=== PATIENT | male | born 1965 | race Caucasian/White ===

== ENCOUNTER → 2017-10-27 | Outpatient (CLI) | payer OTHER ==
[~2017-10-27] MED LIST: ASP325TEC PO; FISH OIL; FLAXSEED; HYDR-3816 PO; NIACIN; ROSU20TA PO
== END ==
LOC: CARD 10:17
PROVIDERS: ATTEND Internal Medicine Cardiovascular Disease
DX: I42.2 Other hypertrophic cardiomyopathy (principal); I44.69 Other fascicular block; R55 Syncope and collapse; R53.83 Other fatigue
CPT/HCPCS: 93225; 93226

== ENCOUNTER → 2017-10-27 | Outpatient (CLI) | payer OTHER | LOC: CARD 10:13 | PROVIDERS: ATTEND Internal Medicine Cardiovascular Disease | DX: I42.2 Other hypertrophic cardiomyopathy (principal); I44.69 Other fascicular block; R55 Syncope and collapse; R53.83 Other fatigue | CPT/HCPCS: 93306 ==

== ENCOUNTER → 2017-10-28 | Outpatient (CLI) | payer OTHER ==
[~2017-10-28] VITALS: Ht 182.9 cm; Wt 92.5 kg
[~2017-10-28] MED LIST changes: +REGADENOSON 0.4 MG/5 ML SYR (LEXISCAN) IV ONE
[2017-10-28] MEDS: CATHETER FLUSH 10 ML SYR IV PRN ×2 (07:26→08:52)
[2017-10-28 08:49] VITALS: BP 133/94
--- NOTE | 2017-10-29 12:21 | STRESS TEST ---
DATE OF SERVICE: 10/28/2017 PROCEDURE: Resting and post regadenoson technetium-99m Tetrofosmin SPECT CT imaging. ORDERING PHYSICIAN: Dr. Krueger. PRIMARY PHYSICIAN: Dr. Carmona. CLINICAL DIAGNOSIS: Near syncope, left bundle branch block, fatigue, hypertrophic cardiomyopathy. DESCRIPTION: Baseline images were carried out after injection of 10.39 mCi technetium-99m Tetrofosmin. This was followed by 0.4 mg regadenoson and 29.7 mCi of technetium-99m Tetrofosmin for stress imaging. The electrocardiogram showed sinus rhythm with left bundle branch block at baseline. The electrocardiogram did not change significantly with the regadenoson infusion. He had a feeling of flushing following regadenoson infusion, which resolved in a few minutes. Overall, he tolerated the procedure well. Review of images at rest and following stress does not indicate any significant perfusion defects consistent with significant myocardial ischemia or infarction. Gated images show normal global left ventricular systolic function systolic function with normal regional wall motion. Left ventricular ejection fraction is calculated to be 62%. Left ventricular end diastolic volume is 64 mL. TID is absent (1.1). CONCLUSIONS: 1. No evidence of any significant myocardial ischemia or infarction on this study. 2. Normal regional wall motion. 3. Normal global left ventricular systolic function with a calculated ejection fraction of 62%. Job ID: [id number] DocumentID: [id number] Dictated Date: 10/29/2017 08:44:02 Validation Intern Date: 10/29/2017 12:17:00 Dictated By: EDGAR KRUEGER MD, MA, FACP, FACC,
== END ==
LOC: CARD 07:14
PROVIDERS: ATTEND Internal Medicine Cardiovascular Disease
DX: I42.2 Other hypertrophic cardiomyopathy (principal); I44.69 Other fascicular block; R55 Syncope and collapse; R53.83 Other fatigue
CPT/HCPCS: 78452; 93017

== ENCOUNTER 2018-02-22 09:55 | Day surgery (SDC) | payer OTHER ==
[~2018-02-22] VITALS: Ht 185.4 cm; Wt 92.5 kg
[2018-02-22] VITALS (8 sets, daily range): BP systolic 119–130; BP diastolic 74–86
[~2018-02-22 09:55] MED LIST changes: +HYDR-34 PO; -HYDR-3816 PO; -REGADENOSON 0.4 MG/5 ML SYR (LEXISCAN) IV ONE
--- OUTSIDE RECORDS SUMMARY | 2018-02-22 09:59 | XMS REPORT | Continuity of Care Document ---
Author Author [facility] Organization [facility] Address Unknown Phone Unavailable Allergies Active Description Code Type Severity Reaction Onset Reported/Identified Relationship to Patient Clinical Status Yes OXYCODONE MODERATE OTHER Yes ZINC MODERATE DERMATOLOGICAL - HIV Yes NKANo Known Allergies NKA Miscellaneous Allergy Unknown N/A 04/15/2006 Yes oxycodone [id number] Drug Allergy Severe N/A 08/03/2016 Yes No Known Drug Allergies [id number] Drug Allergy Unknown N/A 08/03/2016 Yes zinc [id number] Drug Allergy Unknown N/A 08/03/2016 Medications There is no data. Problems Date Dx Coded Attending Type Code Diagnosis Diagnosed By 08/03/2016 REZA HARRISON MD, Ot M77.12 LATERAL EPICONDYLITIS, LEFT ELBOW 08/03/2016 REZA HARRISON MD Ot Z01.818 ENCOUNTER FOR OTHER PREPROCEDURAL EXAMIN 08/03/2016 REZA HARRISON MD Ot Z11.2 ENCOUNTER FOR SCREENING FOR OTHER BACTER 08/04/2016 REZA HARRISON MD, Ot M77.12 LATERAL EPICONDYLITIS, LEFT ELBOW 08/04/2016 REZA HARRISON MD Ot Z01.818 ENCOUNTER FOR OTHER PREPROCEDURAL EXAMIN 08/04/2016 REZA HARRISON MD Ot Z11.2 ENCOUNTER FOR SCREENING FOR OTHER BACTER 08/05/2016 EDGAR WOODSON MD, FACC, FACP CCDS Ot 397.0 TRICUSPID VALVE DISEASE 08/05/2016 EDGAR WOODSON MD, FACC, FACP CCDS Ot 424.0 MITRAL VALVE DISORDER 08/05/2016 EDGAR WOODSON MD, FACC, FACP CCDS Ot 786.50 CHEST PAIN NOS 08/05/2016 LUIS FERNANDO LAM, NGHIA Arias Ot 784.0 HEADACHE 08/05/2016 REZA HARRISON MD Ot M77.12 LATERAL EPICONDYLITIS, LEFT ELBOW 08/06/2016 REZA HARRISON MD, Ot M77.12 LATERAL EPICONDYLITIS, LEFT ELBOW 08/09/2017 Mathew, Petra W 724.2 LUMBAGO 08/09/2017 Mathew, Petra W M54.5 LOW BACK PAIN 08/09/2017 Mathew, Petra W 724.2 LUMBAGO 08/09/2017 Mathew, Petra W M54.5 LOW BACK PAIN 10/20/2017 CHINTAN GAMBOAC, ALI FACP CCDS Ot 397.0 TRICUSPID VALVE DISEASE 10/20/2017 CHINTAN GAMBOAC, ALI FACP CCDS Ot 424.0 MITRAL VALVE DISORDER 10/20/2017 CHINTAN GAMBOAC, ALI FACP CCDS Ot 786.50 CHEST PAIN NOS 10/20/2017 LUIS FERNANDO LAM, NGHIA Arias Ot 784.0 HEADACHE 10/28/2017 CHINTAN GAMBOAC, ALI FACP CCDS Ot I42.2 OTHER HYPERTROPHIC CARDIOMYOPATHY 10/28/2017 CHINTAN GAMBOAC, ALI FACP CCDS Ot I44.69 OTHER FASCICULAR BLOCK 10/28/2017 CHINTAN LAM FACC, ALI FACP CCDS Ot R53.83 OTHER FATIGUE 10/28/2017 CHINTNA LAM FACC, ALI FACP CCDS Ot R55 SYNCOPE AND COLLAPSE 11/02/2017 CHINTAN LAM FACC, ALI FACP CCDS Ot I42.2 OTHER HYPERTROPHIC CARDIOMYOPATHY 11/02/2017 CHINTAN LAM FACC, ALI FACP CCDS Ot I44.69 OTHER FASCICULAR BLOCK 11/02/2017 CHINTAN GAMBOAC, ALI FACP CCDS Ot R53.83 OTHER FATIGUE 11/02/2017 CHINTAN GAMBOAC, ALI FACP CCDS Ot R55 SYNCOPE AND COLLAPSE 11/03/2017 CHINTAN LAM FACC, ALI FACP CCDS Ot I42.2 OTHER HYPERTROPHIC CARDIOMYOPATHY 11/03/2017 CHINTAN GAMBOAC, ALI FACP CCDS Ot I44.69 OTHER FASCICULAR BLOCK 11/03/2017 CHINTAN LAM FACC, ALI FACP CCDS Ot R53.83 OTHER FATIGUE 11/03/2017 CHINTAN GAMBOAC, ALI FACP CCDS Ot R55 SYNCOPE AND COLLAPSE 11/18/2017 CHINTAN GAMBOAC, ALI FACP CCDS Ot I42.2 OTHER HYPERTROPHIC CARDIOMYOPATHY 11/18/2017 CHINTAN LAM FACC, ALI FACP CCDS Ot I44.69 OTHER FASCICULAR BLOCK 11/18/2017 CHINTAN LAM FACC, ALI FACP CCDS Ot R53.83 OTHER FATIGUE 11/18/2017 CHINTAN LAM FACC, ALI FACP CCDS Ot R55 SYNCOPE AND COLLAPSE 11/18/2017 CHINTAN LAM FACC, ALI FACP CCDS Ot I42.2 OTHER HYPERTROPHIC CARDIOMYOPATHY 11/18/2017 CHINTAN LAM FACC, ALI FACP CCDS Ot I44.69 OTHER FASCICULAR BLOCK 11/18/2017 CHINTAN MD FACC, ALI FACP CCDS Ot R53.83 OTHER FATIGUE 11/18/2017 CHINTAN LAM FACC, ALI FACP CCDS Ot R55 SYNCOPE AND COLLAPSE 11/18/2017 CHINTAN LAM FACC, ALI FACP CCDS Ot I42.2 OTHER HYPERTROPHIC CARDIOMYOPATHY 11/18/2017 CHINTAN LAM FACC, ALI FACP CCDS Ot I44.69 OTHER FASCICULAR BLOCK 11/18/2017 CHINTAN LAM FACC, ALI FACP CCDS Ot R53.83 OTHER FATIGUE 11/18/2017 CHINTAN GAMBOAC, ALI FACP CCDS Ot R55 SYNCOPE AND COLLAPSE 12/29/2017 Petra Carmona W 297.9 UNSPECIFIED [place] STATE 12/29/2017 Mathew, Petra W F04 AMNESTIC DISORDER DUE TO KNOWN PHYSIOLOGICAL CONDITION 12/29/2017 Mathew Petra W 297.9 UNSPECIFIED [place] STATE 12/29/2017 Mathew, Petra W F04 AMNESTIC DISORDER DUE TO KNOWN PHYSIOLOGICAL CONDITION 12/31/2017 Mathew Petra W 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 Results Test Result Range Methicillin resistant Staphylococcus aureus (MRSA) screening culture - 12:50 Methicillin resistant Staphylococcus aureus (MRSA) screening culture NEG NRG Thyroid Stimulating Hormone - 08/12/17 07:16 TSH 1.42 mIU/mL 0.32-5.00 PSA Yearly Screen - 08/12/17 07:16 PSA TOTAL 0.9 ng/mL 0.0-4.0 VIT B-12 - 12/29/17 10:47 Vitamin B12 407.00 pg/mL 213.00-816.00 Folate - 12/29/17 10:47 Folate 19.70 ng/mL 7.00-31.40 Encounters ACCT No. Visit Date/Time Discharge Status Pt. Type Provider Facility Loc./Unit Complaint [id number] 10/28/2017 07:14:00 10/28/2017 23:59:59 CLS Outpatient CHINTAN LAM FACC, EDGAR FACP CCDS [facility] CARD NEAR SYNCOPE [id number] 10/27/2017 10:17:00 10/27/2017 23:59:59 CLS Outpatient EDGAR WOODSON MD, FACC FACP CCDS [facility] CARD NEAR SYNCOPE [id number] 10/27/2017 10:13:00 10/27/2017 23:59:59 CLS Outpatient CHINTAN LAM FACC, ALI FACP CCDS [facility] CARD NEAR SYNCOPE [id number] 08/05/2016 06:00:00 08/05/2016 10:25:00 DIS Outpatient REZA HARRISON MD [facility] SDC LEFT LATERAL EPICONDYLITIS [id number] 08/03/2016 12:24:00 08/03/2016 14:17:00 DIS Outpatient REZA HARRISON MD [facility] PREOP LEFT LATERAL EPICONDYLITIS [id number] 08/30/2014 15:28:00 08/30/2014 23:59:59 CLS Outpatient NGHIA GOULD MD [facility] RAD SEVERE RIGHT SIDED HEADACHE [id number] 01/29/2014 09:34:00 01/29/2014 23:59:59 CLS Outpatient EDGAR WOODSON MD, FACC FACYessenia CCDS [facility] CARD CAD [id number] 03/24/2013 06:55:00 03/24/2013 10:30:00 DIS Outpatient [id number] 03/23/2013 07:16:00 03/23/2013 23:59:59 CLS Outpatient [id number] 12/31/2017 15:41:00 12/31/2017 23:59:00 DIS Outpatient Petra Carmona [id number] 12/29/2017 09:57:00 12/29/2017 23:59:00 DIS Outpatient Petra Carmona [id number] 08/12/2017 07:14:00 08/12/2017 23:59:00 DIS Outpatient Petra Carmona [id number] 08/09/2017 19:08:00 08/09/2017 23:59:00 DIS Outpatient Petra Carmona [id number] 08/06/2017 14:23:00 08/06/2017 23:59:00 DIS Outpatient Petra Carmona
[2018-02-22] MEDS ORDERED: HEParin (CATH LAB) 2,000 ML IV ONE (10:00)
[2018-02-22] MEDS ORDERED: NS IV 1000 ML 1,000 ML ONE (10:00)
[2018-02-22] MEDS ORDERED: RECEIVED CONTRAST (Hold Metformin) IV SCH (10:15)
[2018-02-22] MEDS ORDERED: REGADENOSON 0.4 MG/5 ML SYR (LEXISCAN) IV ONE (10:15)
[2018-02-22] MEDS ORDERED: NS IV 1000 ML 1,000 ML IV SCH ×3 (10:15→15:08)
[2018-02-22] MEDS ORDERED: ROSU5TAB11 PO (10:31)
[2018-02-22 10:33] LABS: HEMOGLOBIN 17.1 G/DL (13.3-17.7); MEAN PLATELET VOLUME 8.4 FL (7.4-10.4); RED BLOOD COUNT 5.33 10^6/uL (4.35-5.85); RED CELL DISTRIBUTION WIDTH 12.5 % (10.0-14.5); WHITE BLOOD COUNT 5.5 10^3/uL (4.3-11.0)
[2018-02-22 10:48] LABS: INR 0.9 (0.8-1.4); PROTHROMBIN TIME PATIENT 12.5 SEC (12.2-14.7)
[2018-02-22 10:59] LABS: ALANINE AMINOTRANSFERASE 26 U/L (0-55); ALBUMIN 4.5 GM/DL (3.2-4.5); ALKALINE PHOSPHATASE 80 U/L (40-136); BILIRUBIN,TOTAL 0.9 MG/DL (0.1-1.0); BUN/CREATININE RATIO 19; CALCIUM 9.5 MG/DL (8.5-10.1); CARBON DIOXIDE 23 MMOL/L (21-32); CHLORIDE 104 MMOL/L (98-107); CREATININE SERUM 1.17 MG/DL (0.60-1.30); GFR ESTIMATED > 60; GLUCOSE 99 MG/DL (70-105); POTASSIUM 4.2 MMOL/L (3.6-5.0); SODIUM 139 MMOL/L (135-145); TOTAL PROTEIN 7.1 GM/DL (6.4-8.2); TRIGLYCERIDES 213 MG/DL (<150)
[2018-02-22 11:00] LABS: CHOLESTEROL 267 MG/DL (< 200); HDL CHOLESTEROL 49 MG/DL (40-60); VLDL CHOLESTEROL 43 MG/DL (5-40)
[2018-02-22] MEDS ORDERED: MIDAZOLAM 5 MG/5 ML (VERSED) VIAL ONE (13:25)
[2018-02-22] MEDS ORDERED: diphenhydrAMINE 50 MG/ML INJ (BENADRYL) ONE (13:25)
[2018-02-22] MEDS ORDERED: fentaNYL INJECTION 100 MCG/2 ML AMP ONE (13:25)
[2018-02-22] MEDS ORDERED: LIDOCAINE 1% INJ 50 ML (XYLOCAINE) VIAL ONE (13:47)
--- NOTE | 2018-02-22 13:51 | Cardiac Procedure Note-CS/ASA ---
Pre-Procedure Note Pre-Op Procedure Note H&P Reviewed The H&P was reviewed, patient examined and no changes noted. Date H&P Reviewed: Feb 22, 2018 Time H&P Reviewed: 13:51 Conscious Sedation Pre-Proced Time Reviewed: 13:51 ASA Class: 3 Airway Mallampati Classification: ([place] appropriate class) I. II. III, IV Lungs Heart ASA score ASA 1: a normal healthy patient ASA 2: a patient with a mild systemic disease (mid diabetes, controlled hypertension, obesity ASA 3: a patient with a severe systemic disease that limits activity (angina , COPD, prior Myocardial infarction) ASA 4: a patient with an incapacitating disease that is a constant threat to life (CHF, renal failure) ASA 5: a moribund patient not expected to survive 24 hrs. (ruptured aneurysm) ASA 6: a declared brain patient whose organs are being harvested. For emergent operations, add the letter E after the classification Grade 2 Sedation Plan: Analgesia, Amnesia, Plan communicated to team members, Discussed options with patient/fam, Discussed risks with patient/fam Note The patient is an appropriate candidate to undergo the planned procedure, sedation, and anesthesia. The patient immediately re-assessed prior to indication. EDGAR WOODSON MD FACP FAC CCDS Feb 22, 2018 13:51
--- NOTE | 2018-02-22 15:11 | Discharge Inst-Cardiology ---
Discharge Inst-Cardiac Discharge Medications Continued Medications: Aspirin (Aspirin Ec 325 Mg) 325 Mg Tabec 325 MG PO DAILY Rosuvastatin Calcium (Rosuvastatin Calcium) 5 Mg Tablet 5 MG PO DAILY, TAB Orders-Post D/C & Referrals Pneu Vac Indicated: Yes EDGAR WOODSON MD FACP FACC CCDS Feb 22, 2018 15:11
--- NOTE | 2018-02-22 15:11 | Discharge Inst-Post CATH ---
Discharge Inst-CATH Post Cardiac Cath D/C Inst Follow Up/Plan F/u with Dr Krueger in 2 weeks CARDIAC CATH DISCHARGE INSTRUCTIONS *Hold Metformin for 48 hours post heart cath. ACTIVITY * Go Home directly and rest. * Limit activity of the leg (or wrist if it was used) for 7 days including aerobics, swimming, jogging, bicycling, etc. * Restrict stair-climbing for 7 days if possible, if not, climb up with your non -cath leg, then bring together on the same step. * Avoid lifting, pushing, pulling or excessive movement of the affected extremity for 7 days. * Customary sexual activity may be resumed after 2 days-use caution not to use a position that strains or causes pain to the affected extremity. * No driving for 24 hours. * NO SMOKING. * Avoid straining for bowel movements for 7 days. * Gentle walking on level ground is allowed. * Returning to work will depend on the type of procedure and the results. Your doctor will discuss this with you. CALL YOUR DOCTOR FOR ANY OF THE FOLLOWING: *If bleeding from the puncture site occurs- Apply gentle pressure to site with clean cloth and call your doctor or EMS. * If a knot or lump forms under the skin, increases in size, or causes pain. * If bruising appears to be worsening or moving further down your leg instead of disappearing. * Temperature above 101 F. CARE OF YOUR GROIN INCISION; * Bruising or purple discoloration of the skin near the puncture site is common. * You may shower only, no bathtub bathing for 5 days. Be careful to avoid slipping as your leg may feel stiff. * If a closure device was used on your femoral artery, please see the attached guide regarding care of the device and your leg. * REMOVE the dressing from your groin the next day after your procedure in the shower. CARE OF YOUR WRIST INCISION; * Bruising or purple discoloration of the skin near the puncture site is common. * You may shower. * DO NOT submerge wrist. * Remove dressing in 24 hours. EDGAR KRUEGER MD [facility] CCDS Feb 22, 2018 15:11
[2018-02-22] MEDS ORDERED: PATIENT MAY USE OWN MEDS, ALL PO SCH (15:15)
--- NOTE | 2018-02-22 15:46 | CARDIAC CATHETERIZATION ---
DATE OF SERVICE: 02/22/2018 CARDIAC CATHETERIZATION REPORT The patient is a 52-year-old man with known history of hypertrophic cardiomyopathy for which he has had septal myectomy several years ago. Lately, he has had recurrent symptoms, similar to what he was experiencing prior to septal myectomy. He reports tiredness, generalized weakness and loss of stamina. Symptoms have been progressive. Cardiac catheterization was carried out today after having obtained an informed consent. PROCEDURE: He was brought to the cardiac catheterization laboratory in a fasting state. The right groin was prepped and draped in the usual sterile fashion. Lidocaine 1% with local anesthesia. Modified Seldinger technique was then used to advance a 7-[place] sheath into the right femoral vein. We carried out right heart catheterization using a 7-[place] catheter. We measured oxygen saturation in various chambers of the heart, as well. Subsequently, the [place] catheter was removed. We then carried out left heart catheterization. We used a dual-lumen pigtail catheter. The pigtail was advanced across the aortic valve into the left ventricle. We measured simultaneous left ventricular and ascending aortic pressures. We induced premature ventricular contraction to look for Brockenbrough sign. We carried out left ventricular angiography with the pigtail catheter. The pigtail catheter was then pulled back and removed. We used a 6-[place] JL4 catheter for left coronary angiography and 6-[place] JR4 catheter for right coronary angiography. We then used pigtail catheter to carry out aortic arch angiography. Following removal of the diagnostic catheters, angiography of the right femoral artery was carried out through the sheath. Mynx was used to achieve hemostasis. He tolerated the procedure well. HEMODYNAMICS: Pulmonary artery pressure is 34/20 with a mean of 24 mmHg. Mean pulmonary wedge pressure was 14 mmHg. Right ventricular systolic pressure was 42 mmHg. Right ventricular end-diastolic pressure was 13 mmHg. Right atrial mean pressure was 10 mmHg. Left ventricular end diastolic pressure was 11 mmHg. There did not appear to be significant pressure gradient across the aortic valve and the left ventricular outflow tract. Brockenbrough sign was negative. Ascending aortic pressure was 125/73 with a mean of 91 mmHg. CORONARY ANGIOGRAPHY: Left main coronary artery is free of significant disease. Left anterior descending artery is free of obstructive disease. In the mid portion of the left anterior descending artery, myocardial bridging is seen. Left circumflex artery does not exhibit significant disease. The right coronary artery is dominant and does not exhibit significant obstructive disease. LEFT VENTRICULAR ANGIOGRAPHY: Global left ventricular systolic function is normal. No regional wall motion abnormality is seen. There does not appear to be any significant mitral regurgitation. AORTIC ARCH ANGIOGRAPHY: Aortic arch angiography did not indicate any significant thoracic aortic aneurysm or dissection. The neck arteries, to the extent seen, do not exhibit significant obstructive disease. CONCLUSIONS: 1. No angiographically significant coronary artery disease. 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 2. Normal global left ventricular systolic function with ejection fraction of approximately 65%. 3. No significant mitral regurgitation. No evidence of any significant dynamic obstruction of the left ventricle. DISCUSSION AND RECOMMENDATIONS: Based on the results of the study, it appears appropriate to continue a conservative approach. Risk factor modification has been reviewed. Outpatient followup is advised. Job ID: [id number] DocumentID: [id number] Dictated Date: 02/22/2018 15:03:41 Hardware Developer Date: 02/22/2018 15:45:53 Dictated By: EDGAR WOODSON MD, MA, FACP, FACC,
== END 2018-02-22 17:43 | disposition home or self-care (01) ==
LOC: CATH 09:55 → ICU 15:22 → CATH 17:43
PROVIDERS: ATTEND Internal Medicine Cardiovascular Disease
DX: R53.83 Other fatigue (principal); I44.7 Left bundle-branch block, unspecified; E78.1 Pure hyperglyceridemia; R07.9 Chest pain, unspecified; Z79.82 Long term (current) use of aspirin; Z79.899 Other long term (current) drug therapy
CPT/HCPCS: 36415; 80053; 80061; 85027; 85610; 85730; 87081; 93005

== ENCOUNTER 2019-01-09 13:32 | Emergency (ER) | payer OTHER ==
[~2019-01-09] VITALS: Ht 185.4 cm; Wt 93.0 kg
[2019-01-09] MEDS ORDERED: LIDOCAINE PF 1% 5 ML (XYLOCAINE) AMP ONE (13:42)
[2019-01-09] MEDS ORDERED: LIDOCAINE 1% INJ 20 ML 20 ML VIAL ONE (13:43)
--- NOTE | 2019-01-09 13:53 | ED Upper Extremity ---
General Stated Complaint: LT THUMB INJ Source: patient Exam Limitations: no limitations History of Present Illness Date Seen by Provider: Jan 09, 2019 Time Seen by Provider: 13:51 Initial Comments To ER with reports of left thumb injury. He works at [employer], they've had trouble with some sort of roller heating up, he was working near this roller when his thumb got sucked into the roller. There is no crush injury with laceration to the left thumb. Tetanus was updated 3 years ago. Onset: just prior to arrival Severity: moderate Pain/Injury Location: left thumb Method of Injury: other (crush injury) Modifying Factors: Worse With Movement Allergies and Home Medications Allergies Coded Allergies: oxycodone (Verified Allergy, Severe, 08/03/16) iron (Verified Allergy, Unknown, 02/22/18) niacin (Verified Allergy, Unknown, 02/22/18) zinc (Verified Allergy, Unknown, 08/03/16) Home Medications Aspirin 325 Mg Tabec, 325 MG PO DAILY, (Reported) Rosuvastatin Calcium 5 Mg Tablet, 5 MG PO DAILY, (Reported) Patient Home Medication List Home Medication List Reviewed: Yes Review of Systems Constitutional: see HPI EENTM: see HPI Respiratory: no symptoms reported Cardiovascular: no symptoms reported Genitourinary: no symptoms reported Musculoskeletal: see HPI Skin: no symptoms reported Past Weyoioo-Uxsbew-Ljwihe Hx Patient Social History Recent Foreign Travel: No Contact w/Someone Who Travel: No Past Medical History Reproductive Disorders: No Sexually Transmitted Disease: No HIV/AIDS: Yes Kidney Stones Polyps Loss of Vision: Bilateral Hearing Impairment: Denies Adverse Reaction/Blood Tranf: No (N/A) Physical Exam Vital Signs Vital Signs - First Documented 01/09/19 13:45 Temp 95.7 Pulse 78 Resp 18 B/P (MAP) 154/89 (110) Pulse Ox 96 O2 Delivery Room Air Capillary Refill : Height, Weight, BMI Height: 6'1.00" Weight: 204lbs. 0.0oz. 92.952438bz; 26.9 BMI Method: General Appearance: WD/WN, no apparent distress HEENT: PERRL/EOMI Respiratory: no respiratory distress, no accessory muscle use Shoulder: normal inspection, non-tender Elbow/Forearm: normal inspection, non-tender Hand: Left (flap to the pad of the left thumb. He is able to flex the thumb at the interphalangeal joint. The flap does have capillary refill.), laceration Neurologic/Psychiatric: alert, normal mood/affect, oriented x 3 Skin: normal color, warm/dry Procedures/Interventions Wound Location: Upper Extremities Wound Length (cm): 4 Wound's Depth, Shape: irregular Wound Explored: clean Irrigated w/ Saline (ccs): 350 Anesthesia: 1% Lidocaine Volume Anesthetic (ccs): 5 Suture: Prolene Suture Size: 5-0 Number of Sutures: 12 Layer Closure?: 1 Number Deep Layer Sutures: 0 Progress Digital block was done using 5 mL of 1% lidocaine without epinephrine. Wound was then scrubbed with chlorhexidine/saline solution then irrigated with 350 mL of the same. The flap to the pad of the thumb does have capillary refill. Edges were reapproximated with 9 simple interrupted sutures size 5-0 Prolene. There was an additional laceration to the middle of the pad of the thumb closed with 3 simple a ruptured sutures size 5-0 Prolene. There is a subungual hematoma. Nail trephination was done using a cautery pen. Finger was then dressed with oral emulsion dressing, gauze roll and then tube gauze. Progress/Results/Core Measures Results/Orders My Orders Orders - BRAXTON GONZALEZ APRN Lidocaine Pf 1% 5 Ml Injection (Xylocain (01/09/19 13:42) Lidocaine 1% Inj 20 Ml (Xylocaine 1% Inj (01/09/19 13:43) Hand, Left, 3 Views (01/09/19 13:50) Lidocaine 1% Inj 20 Ml (Xylocaine 1% Inj (01/09/19 14:00) Hydrocodone/Apap 5/325 Tablet (Lortab 5 (01/09/19 14:00) Medications Given in ED Current Medications Medications Dose Ordered Sig/Tracy Route Start Time Stop Time Status Last Admin Dose Admin Acetaminophen/ Hydrocodone Bitart 1 tab ONCE ONCE PO 01/09/19 14:00 01/09/19 14:01 DC 01/09/19 14:25 1 TAB Lidocaine HCl 1 ml ONCE ONCE INJ 01/09/19 14:00 01/09/19 14:01 DC 01/09/19 14:15 1 ML Vital Signs/I&O 01/09/19 13:45 Temp 95.7 Pulse 78 Resp 18 B/P (MAP) 154/89 (110) Pulse Ox 96 O2 Delivery Room Air Departure Impression Primary Impression: Crush injury to thumb Qualified Codes: S67.02XA - Crushing injury of left thumb, initial encounter Disposition: HOME, SELF-CARE Condition: Stable Departure-Patient Inst. Decision time for Depature: 14:44 Referrals: YOON SHIN MD (PCP/Family) Primary Care Physician Patient Instructions: Laceration Repair With Stitches (DC) Add. Discharge Instructions: 1. Leave this dressing in place until Wednesday evening. Then you may remove it by simply pulling on it. If you wish, you can simply wash this gently with soap and water pat it dry gently then reapply an oil emulsion dressing and tube gauze. Try to keep this covered for about 2 weeks. You not soak this in water such as a hot tub or bathtub or dish sink, but letting water gently run over it beneath the sink once a day is okay to start in 2 days. Stitches should be removed in about 10-12 days. Return to the emergency room at that time at your convenience within that timeframe. Take the antibiotics and the pain medication as directed. It is fine to add 3 regular strength ibuprofen tablets every 8 hours to the pain medication prescribed if you need additional pain control. Elevate the hand, that will help with throbbing as well. Scripts Cephalexin (Keflex) 500 Mg Capsule 500 MG PO TID, #21 CAP Prov: BRAXTON GONZALEZ APRN 01/09/19 Hydrocodone/Acetaminophen (Hydrocodone-Acetamin 5-325 mg) 1 Each Tablet 1 TAB PO Q4-6HR for PAIN-MODERATE MDD 10, #20 TAB Prov: BRAXTON GONZALEZ SCHOOL COUNSELOR 01/09/19 BRAXTON GONZALEZ APRN Jan 09, 2019 13:53
[2019-01-09] MEDS ORDERED: LIDOCAINE 1% INJ 20 ML 20 ML VIAL INJ ONE (14:00)
[2019-01-09] MEDS ORDERED: HYDROcodone/APAP 5 MG/325 MG (LORTAB) TAB PO ONE (14:00)
--- NOTE | 2019-01-09 14:26 | Diagnostic Imaging Report ---
Indication: Crush injury with lacerations and bleeding. There is some soft tissue gas and soft tissue irregularity about the thumb. There was however no retained opaque foreign body and no fracture can be identified. Impression: Soft tissue injury and soft tissue gas at the level of the distal phalanx of the thumb but no acute bony abnormality or retained foreign body. Dictated by: Dictated on workstation # [id number]
[2019-01-09 14:54] VITALS: BP 145/89
== END 2019-01-09 14:54 | disposition home or self-care (01) ==
LOC: EDUNIT# 13:32 → ER 13:34
DX: S67.02XA Crushing injury of left thumb, initial encounter (principal); Z88.5 Allergy status to narcotic agent; Z88.8 Allergy status to other drugs, medicaments and biological substances; Z79.82 Long term (current) use of aspirin; Z87.442 Personal history of urinary calculi; Z86.010 Personal history of colon polyps; W23.1XXA Caught, crushed, jammed, or pinched between stationary objects, initial encounter; Y92.59 Other trade areas as the place of occurrence of the external cause; Y99.0 Civilian activity done for income or pay
CPT/HCPCS: 12002; 73130

== ENCOUNTER 2019-01-20 12:36 | Emergency (ER) | payer OTHER ==
[~2019-01-20] VITALS: Ht 185.4 cm; Wt 93.0 kg
[~2019-01-20 12:36] MED LIST changes: +CEPH-507 PO; +HYDR-3812 PO; +ROSU5TAB12 PO
[2019-01-20 13:19] VITALS: BP 112/65
--- OUTSIDE RECORDS SUMMARY | 2019-01-22 09:25 | XMS REPORT | Continuity of Care Document ---
Author Author [facility] Organization [facility] Address Unknown Phone Unavailable Allergies Active Description Code Type Severity Reaction Onset Reported/Identified Relationship to Patient Clinical Status Yes OXYCODONE MODERATE OTHER Yes ZINC MODERATE DERMATOLOGICAL - HIV Yes NKANo Known Allergies NKA Miscellaneous Allergy Unknown N/A 04/15/2006 Yes oxycodone [id number] Drug Allergy Severe N/A 08/03/2016 Yes No Known Drug Allergies [id number] Drug Allergy Unknown N/A 08/03/2016 Yes zinc [id number] Drug Allergy Unknown N/A 08/03/2016 Yes iron [id number] Drug Allergy Unknown N/A 02/22/2018 Yes niacin [id number] Drug Allergy Unknown N/A 02/22/2018 Medications There is no data. Problems Date Dx Coded Attending Type Code Diagnosis Diagnosed By 08/03/2016 REZA HARRISON MD, Ot M77.12 LATERAL EPICONDYLITIS, LEFT ELBOW 08/03/2016 REZA HARRISON MD Ot Z01.818 ENCOUNTER FOR OTHER PREPROCEDURAL EXAMIN 08/03/2016 REZA HARRISON MD Ot Z11.2 ENCOUNTER FOR SCREENING FOR OTHER BACTER 08/04/2016 REZA HARRISON MD Ot M77.12 LATERAL EPICONDYLITIS, LEFT ELBOW 08/04/2016 [...] CCDS Ot 786.50 CHEST PAIN NOS 08/05/2016 NGHIA GOULD MD Ot 784.0 HEADACHE 08/05/2016 CHRISTY LAM, REZA Casas Ot M77.12 LATERAL EPICONDYLITIS, LEFT ELBOW 08/06/2016 CHRISTY LAM, REZA Casas Ot M77.12 LATERAL EPICONDYLITIS, LEFT ELBOW 08/09/2017 Mathew, Petra W 724.2 LUMBAGO 08/09/2017 Mathew, Petra W M54.5 LOW BACK PAIN 08/09/2017 Pretty Carmonaa W 724.2 LUMBAGO 08/09/2017 Mathew, Petra W M54.5 LOW BACK PAIN 10/20/2017 CHINTAN GAMBOAC, ALI FACP CCDS Ot 397.0 TRICUSPID VALVE DISEASE 10/20/2017 CHINTAN LAM FACC, ALI FACP CCDS Ot 424.0 MITRAL VALVE DISORDER 10/20/2017 CHINTAN LAM FACC, ALI FACP CCDS Ot 786.50 CHEST PAIN NOS 10/20/2017 LUIS FERNANDO LAM, NGHIA Arias Ot 784.0 HEADACHE 10/28/2017 CHINTAN LAM FACC, ALI FACP CCDS Ot I42.2 OTHER HYPERTROPHIC CARDIOMYOPATHY 10/28/2017 CHINTAN LAM FACC, ALI FACP CCDS Ot I44.69 OTHER FASCICULAR BLOCK 10/28/2017 CHINTAN LAM FACC, ALI FACP CCDS Ot R53.83 OTHER FATIGUE 10/28/2017 CHINTAN LAM FACC, ALI FACP CCDS Ot R55 SYNCOPE AND COLLAPSE 11/02/2017 CHINTAN LAM FACC, ALI FACP CCDS Ot I42.2 OTHER HYPERTROPHIC CARDIOMYOPATHY 11/02/2017 CHINTAN LAM FACC, ALI FACP CCDS Ot I44.69 OTHER FASCICULAR BLOCK 11/02/2017 CHINTAN LAM FACC, ALI FACP CCDS Ot R53.83 OTHER FATIGUE 11/02/2017 CHINTAN LAM FACC, ALI FACP CCDS Ot R55 SYNCOPE AND COLLAPSE 11/03/2017 CHINTAN LAM FACC, ALI FACP CCDS Ot I42.2 OTHER HYPERTROPHIC CARDIOMYOPATHY 11/03/2017 CHINTAN LAM FACC, ALI FACP CCDS Ot I44.69 OTHER FASCICULAR BLOCK 11/03/2017 CHINTAN LAM FACC, ALI FACP CCDS Ot R53.83 OTHER FATIGUE 11/03/2017 CHINTAN LAM FACC, ALI FACP CCDS [...] FACP CCDS Ot R53.83 OTHER FATIGUE 11/18/2017 CHINTNA LAM FACC, ALI FACP CCDS Ot [...] Carmona W 297.9 UNSPECIFIED PARANOID STATE 12/29/2017 Petra Carmona W F04 AMNESTIC DISORDER DUE TO KNOWN PHYSIOLOGICAL CONDITION 12/29/2017 Petra Carmona W 297.9 UNSPECIFIED PARANOID STATE 12/29/2017 Pretty Carmonaa W F04 AMNESTIC DISORDER DUE TO KNOWN PHYSIOLOGICAL CONDITION 12/31/2017 Petra Carmona W 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 12/31/2017 Petra Carmona W E04.1 NONTOXIC SINGLE THYROID NODULE 12/31/2017 Petra Carmona W 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 12/31/2017 Petra Carmona W E04.1 NONTOXIC SINGLE THYROID NODULE 02/21/2018 CHINTAN LAM FACC, ALI FACP CCDS Ot 397.0 TRICUSPID VALVE DISEASE 02/21/2018 CHINTAN LAM FACC, ALI FACP CCDS Ot 424.0 MITRAL VALVE DISORDER 02/21/2018 CHINTAN MD FACC, ALI FACP CCDS Ot 786.50 CHEST PAIN NOS 02/21/2018 LUIS FERNANDO LAM, NGHIA Arias Ot 784.0 HEADACHE 02/21/2018 CHINTAN LAM FACC, ALI FACP CCDS Ot I42.2 OTHER HYPERTROPHIC CARDIOMYOPATHY 02/21/2018 CHINTAN LAM FACC, ALI FACP CCDS Ot I44.69 OTHER FASCICULAR BLOCK 02/21/2018 CHINTAN LAM FACC, ALI FACP CCDS Ot R53.83 OTHER FATIGUE 02/21/2018 CHINTAN LAM FACC, ALI FACP CCDS Ot R55 SYNCOPE AND COLLAPSE 02/21/2018 CHINTAN LAM FACC, ALI FACP CCDS Ot I42.2 OTHER HYPERTROPHIC CARDIOMYOPATHY 02/21/2018 CHINTAN LAM FACC, ALI FACP CCDS Ot I44.69 OTHER FASCICULAR BLOCK 02/21/2018 CHINTAN GAMBOAC, ALI FACP CCDS Ot R53.83 OTHER FATIGUE 02/21/2018 CHINTAN LAM FACC, ALI FACP CCDS Ot R55 SYNCOPE AND COLLAPSE 02/21/2018 CHINTAN LAM FAC, ALI FACP CCDS Ot I42.2 OTHER HYPERTROPHIC CARDIOMYOPATHY 02/21/2018 CHINTAN LAM FACC, ALI FACP CCDS Ot I44.69 OTHER FASCICULAR BLOCK 02/21/2018 CHINTAN GAMBOA, ALI FACP CCDS Ot R53.83 OTHER FATIGUE 02/21/2018 CHINTAN GAMBOAC, ALI FACP CCDS Ot R55 SYNCOPE AND COLLAPSE 02/22/2018 CHINTAN GAMBOAC, ALI FACP CCDS Ot 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 02/22/2018 CHINTAN LAM FACC, ALI FACP CCDS Ot I44.7 LEFT BUNDLE-BRANCH BLOCK, UNSPECIFIED 02/22/2018 CHINTAN GAMBOAC, ALI FACP CCDS Ot R07.9 CHEST PAIN, UNSPECIFIED 02/22/2018 CHINTAN LAM FACC, ALI FACP CCDS Ot R53.83 OTHER FATIGUE 02/22/2018 CHINTAN LAM FACC, ALI FACP CCDS Ot Z79.82 SNF (CURRENT) USE OF ASPIRIN 02/22/2018 CHINTAN LAM FACC, ALI FACP CCDS Ot Z79.899 OTHER SNF (CURRENT) DRUG THERAPY 02/23/2018 CHINTAN LAM FACC, ALI FACP CCDS Ot 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 02/23/2018 CHINTAN LAM FACC, ALI FACP CCDS Ot I44.7 LEFT BUNDLE-BRANCH BLOCK, UNSPECIFIED 02/23/2018 CHINTAN LAM FACC, ALI FACP CCDS Ot R07.9 CHEST PAIN, UNSPECIFIED 02/23/2018 CHINTAN LAM FACC, ALI FACP CCDS Ot R53.83 OTHER FATIGUE 02/23/2018 CHINTAN LAM FACC, ALI FACP CCDS Ot 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 02/23/2018 CHINTAN LAM FACC, ALI FACP CCDS Ot Z79.899 OTHER SNF (CURRENT) DRUG THERAPY 03/08/2018 CHINTAN GAMBOAC, ALI FACP CCDS Ot 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 03/08/2018 CHINTAN LAM FACC, ALI FACP CCDS Ot I44.7 LEFT BUNDLE-BRANCH BLOCK, UNSPECIFIED 03/08/2018 CHINTAN GAMBOAC, ALI FACP CCDS Ot R07.9 CHEST PAIN, UNSPECIFIED 03/08/2018 CHINTAN LAM FACC, ALI FACP CCDS Ot R53.83 OTHER FATIGUE 03/08/2018 CHINTAN LAM FACC, ALI FACP CCDS Ot Z79.82 SNF (CURRENT) USE OF ASPIRIN 03/08/2018 CHINTAN GAMBOAC, ALI FACP CCDS Ot Z79.899 OTHER SNF (CURRENT) DRUG THERAPY 01/09/2019 CHINTAN LAM FACC, ALI FACP CCDS Ot 397.0 TRICUSPID VALVE DISEASE 01/09/2019 CHINTAN LAM FACC, ALI FACP CCDS Ot 424.0 MITRAL VALVE DISORDER 01/09/2019 CHINTAN LAM FACC, ALI FACP CCDS Ot 786.50 CHEST PAIN NOS 01/09/2019 LUIS FERNANDO LAM, NGHIA Arias Ot 784.0 HEADACHE 01/09/2019 CHINTAN LAM FACC, ALI FACP CCDS Ot I42.2 OTHER HYPERTROPHIC CARDIOMYOPATHY 01/09/2019 CHINTAN LAM FACC, ALI FACP CCDS Ot I44.69 OTHER FASCICULAR BLOCK 01/09/2019 CHINTAN LAM FACC, ALI FACP CCDS Ot R53.83 OTHER FATIGUE 01/09/2019 CHINTAN LAM FACC, ALI FACP CCDS Ot R55 SYNCOPE AND COLLAPSE 01/09/2019 CHINTAN LAM FACC, ALI FACP CCDS Ot I42.2 OTHER HYPERTROPHIC CARDIOMYOPATHY 01/09/2019 CHINTAN LAM FACC, ALI FACP CCDS Ot I44.69 OTHER FASCICULAR BLOCK 01/09/2019 CHINTAN LAM FACC, ALI FACP CCDS Ot R53.83 OTHER FATIGUE 01/09/2019 CHINTAN LAM FACC, ALI FACP CCDS Ot R55 SYNCOPE AND COLLAPSE 01/09/2019 CHINTAN LAM FACC, ALI FACP CCDS Ot I42.2 OTHER HYPERTROPHIC CARDIOMYOPATHY 01/09/2019 CHINTAN LAM FACC, ALI FACP CCDS Ot I44.69 OTHER FASCICULAR BLOCK 01/09/2019 CHINTAN LAM FACC, ALI FACP CCDS Ot R53.83 OTHER FATIGUE 01/09/2019 CHINTAN LAM FACC, ALI FACP CCDS Ot R55 SYNCOPE AND COLLAPSE 01/11/2019 BRAXTON GONZALEZ APRN Ot S67.02XA CRUSHING INJURY OF LEFT THUMB, INITIAL E 01/11/2019 BRAXTON GONZALEZ APRN Ot W23.1XXA CAUGHT, CRUSH, JAMMED, OR PINCHED BETW S 01/11/2019 BRAXTON GONZALEZ APRN Ot Y92.59 [facility] 01/11/2019 BRAXTON GONZALEZ APRN Ot Y99.0 CIVILIAN ACTIVITY DONE FOR INCOME OR PAY 01/11/2019 BRAXTON GONZALEZ APRN Ot Z79.82 SNF (CURRENT) USE OF ASPIRIN 01/11/2019 BRAXTON GONZALEZ APRN Ot Z86.010 PERSONAL HISTORY OF COLONIC POLYPS 01/11/2019 BRAXTON GONZALEZ APRN Ot Z87.442 PERSONAL HISTORY OF URINARY CALCULI 01/11/2019 BRAXTON GONZALEZ APRN Ot Z88.5 ALLERGY STATUS TO NARCOTIC AGENT STATUS 01/11/2019 BRAXTON GONZALEZ APRN Ot Z88.8 ALLERGY STATUS TO OT DRUG/MEDS/BIOL SUB Procedures There is no data. Results Test [...] - 12/29/17 10:47 Folate 19.70 ng/mL 7.00-31.40 Automated blood complete blood count (hemogram) panel - 02/22/18 10:22 Blood leukocytes automated count (number/volume) 5.5 10*3/uL 4.3-11.0 Blood erythrocytes automated count (number/volume) 5.33 10*6/uL 4.35-5.85 Venous blood hemoglobin measurement (mass/volume) 17.1 g/dL 13.3-17.7 Blood hematocrit (volume fraction) 46 % 40-54 Automated erythrocyte mean corpuscular volume 87 [foz_us] 80-99 Automated erythrocyte mean corpuscular hemoglobin (mass per erythrocyte) 32 pg 25-34 Automated erythrocyte mean corpuscular hemoglobin concentration measurement ( mass/volume) 37 g/dL 32-36 Automated erythrocyte distribution width ratio 12.5 % 10.0-14.5 Automated blood platelet count (count/volume) 204 10*3/uL 130-400 Automated blood platelet mean volume measurement 8.4 [foz_us] 7.4-10.4 PT panel in platelet poor plasma by coagulation assay - 02/22/18 10:22 Prothrombin time (PT) in platelet poor plasma by coagulation assay 12.5 s 12.2-14.7 INR in platelet poor plasma or blood by coagulation assay 0.9 0.8-1.4 Activated partial thromboplastin time (aPTT) in platelet poor plasma bycoagulation assay - 02/22/18 10:22 Activated partial thromboplastin time (aPTT) in platelet poor plasma bycoagulation assay 26 s 24-35 Comprehensive metabolic panel - 02/22/18 10:22 Serum or plasma sodium measurement (moles/volume) 139 mmol/L 135-145 Serum or plasma potassium measurement (moles/volume) 4.2 mmol/L 3.6-5.0 Serum or plasma chloride measurement (moles/volume) 104 mmol/L 98-107 Carbon dioxide 23 mmol/L 21-32 Serum or plasma anion gap determination (moles/volume) 12 mmol/L 5-14 Serum or plasma urea nitrogen measurement (mass/volume) 22 mg/dL 7-18 Serum or plasma creatinine measurement (mass/volume) 1.17 mg/dL 0.60-1.30 Serum or plasma urea nitrogen/creatinine mass ratio 19 NRG Serum or plasma creatinine measurement with calculation of estimated glomerular filtration rate > NRG Serum or plasma glucose measurement (mass/volume) 99 mg/dL 70-105 Serum or plasma calcium measurement (mass/volume) 9.5 mg/dL 8.5-10.1 Serum or plasma total bilirubin measurement (mass/volume) 0.9 mg/dL 0.1-1.0 Serum or plasma alkaline phosphatase measurement (enzymatic activity/volume) 80 U/L 40-136 Serum or plasma aspartate aminotransferase measurement (enzymatic activity/ volume) 28 U/L 5-34 Serum or plasma alanine aminotransferase measurement (enzymatic activity/volume ) 26 U/L 0-55 Serum or plasma protein measurement (mass/volume) 7.1 g/dL 6.4-8.2 Serum or plasma albumin measurement (mass/volume) 4.5 g/dL 3.2-4.5 Lipid 1996 panel - 02/22/18 10:22 Serum or plasma triglyceride measurement (mass/volume) 213 mg/dL <150 Serum or plasma cholesterol measurement (mass/volume) 267 mg/dL < 200 Serum or plasma cholesterol in HDL measurement (mass/volume) 49 mg/ dL 40-60 Cholesterol in LDL [mass/volume] in serum or plasma by direct assay 174 mg/dL 1-129 Serum or plasma cholesterol in VLDL measurement (mass/volume) 43 mg/ dL 5-40 Methicillin resistant Staphylococcus aureus (MRSA) screening culture - 10:22 Methicillin resistant Staphylococcus aureus (MRSA) screening culture NEG NRG Encounters ACCT No. Visit Date/Time Discharge Status Pt. Type Provider Facility Loc./Unit Complaint [id number] 01/20/2019 12:37:00 01/20/2019 13:19:00 DIS Emergency BRAXTON GONZALEZ APRN [facility] ER STITCH REMOVAL [id number] 01/09/2019 13:34:00 01/09/2019 14:54:00 DIS Emergency BRAXTON GONZALEZ APRN [facility] ER LT THUMB INJ [id number] 02/22/2018 09:55:00 02/22/2018 17:43:00 DIS Outpatient CHINTAN LAM FACC, ALI FACP CCDS [facility] CATH FATIGUE, CARDIOMYOPATHY [id number] 10/28/2017 07:14:00 10/28/2017 23:59:59 CLS Outpatient CHINTAN LAM FACC, ALI FACP CCDS [facility] CARD NEAR SYNCOPE [id number] 10/27/2017 10:17:00 10/27/2017 23:59:59 CLS Outpatient CHINTAN LAM FACC, ALI FACP CCDS [facility] CARD NEAR SYNCOPE [id number] 10/27/2017 10:13:00 10/27/2017 23:59:59 CLS Outpatient CHINTAN LAM FACC, ALI FACP CCDS [facility] CARD NEAR SYNCOPE [id number] 08/05/2016 06:00:00 08/05/2016 10:25:00 DIS Outpatient REZA HARRISON MD [facility] SDC LEFT LATERAL EPICONDYLITIS [id number] 08/03/2016 12:24:00 08/03/2016 14:17:00 DIS Outpatient REZA HARRISON MD [facility] PREOP LEFT LATERAL EPICONDYLITIS [id number] 08/30/2014 15:28:00 08/30/2014 23:59:59 CLS Outpatient NGHIA GOULD MD [facility] RAD SEVERE RIGHT SIDED HEADACHE [id number] 01/29/2014 09:34:00 01/29/2014 23:59:59 CLS Outpatient CHINTAN LAM FACC, EDGAR FACP CCDS [facility] CARD CAD [id number] 03/24/2013 06:55:00 03/24/2013 10:30:00 DIS Outpatient [id number] 03/23/2013 07:16:00 03/23/2013 23:59:59 CLS Outpatient [id number] 07/04/2018 14:50:00 07/04/2018 23:59:00 DIS Outpatient Petra Carmona [id number] 12/31/2017 15:41:00 12/31/2017 23:59:00 DIS Outpatient Petra Carmona [id number] 12/29/2017 09:57:00 12/29/2017 23:59:00 DIS Outpatient Petra Carmona [id number] 08/12/2017 07:14:00 08/12/2017 23:59:00 DIS Outpatient Petra Carmona [id number] 08/09/2017 19:08:00 08/09/2017 23:59:00 DIS Outpatient Petra Carmona [id number] 08/06/2017 14:23:00 08/06/2017 23:59:00 DIS Outpatient Petra Carmona
== END 2019-01-20 13:19 | disposition home or self-care (01) ==
LOC: EDUNIT# 12:36 → ER 12:37
DX: S61.012D Laceration without foreign body of left thumb without damage to nail, subsequent encounter (principal); X58.XXXD Exposure to other specified factors, subsequent encounter